=== PATIENT | male | born 1980 | race Caucasian/White ===

== ENCOUNTER 2020-01-11 13:43 | Emergency (ER) | payer OTHER ==
[~2020-01-11] VITALS: Ht 177.8 cm; Wt 68.0 kg
[~2020-01-11 13:43] MED LIST: FLEXERIL PO; VICODIN 5-5001 EACH PO
[2020-01-11 13:49] VITALS: BP 174/145
[2020-01-11] MEDS ORDERED: CLEOCIN HCL150 MG PO (14:15)
== END 2020-01-11 14:25 | disposition home or self-care (01) ==
LOC: ER 13:43
DX: L03.113 Cellulitis of right upper limb (principal)